=== PATIENT | female | born 1940 | race Caucasian/White ===

== ENCOUNTER 2021-08-12 20:30 | Emergency (ER) | payer MEDICARE ==
[2021-08-12 22:39] VITALS: BP 122/57; PULSE 79; RESP 18; TEMP 98.8
--- NOTE | 2021-08-12 23:25 | XR ---
EXAMINATION TYPE: XR Hip LT and AP Pelvis DATE OF EXAM: 08/12/2021 COMPARISON: NONE HISTORY: Left hip pain. Fall. TECHNIQUE: 3 views FINDINGS: Pelvic ring is intact. Proximal left femur and hip joint appear intact. Sacroiliac joints a re intact. IMPRESSION: Negative left hip exam.
--- NOTE | 2021-08-12 23:28 | XR ---
EXAMINATION TYPE: XR knee complete LT DATE OF EXAM: 08/12/2021 COMPARISON: NONE HISTORY: Pain TECHNIQUE: 3 views FINDINGS: There is knee joint effusion. There is evidence for a nondisplaced fracture of the lateral tibial plateau. The distal femur is intact. IMPRESSION: There is evidence for nondisplaced vertical fracture through the lateral tibial plateau. Knee joint effusion.
[2021-08-13] MEDS ORDERED: traMADol 50 MG TAB PO STA (00:14)
[2021-08-13] MEDS ORDERED: IBUPROFEN 600 MG TAB PO STA (00:14)
[2021-08-13] MEDS ORDERED: IBUPROFEN 600 MG STARTER PACK 4 TAB BTL PO STA (00:14)
[2021-08-13] MEDS ORDERED: traMADol 50 MG STARTER PACK 3 TAB BTL PO STA (00:14)
--- NOTE | 2021-08-13 00:14 | ED ---
Fall HPI - General Chief Complaint: Fall Stated Complaint: Fall, Left Knee Injury Time Seen by Provider: 08/12/21 23:37 Source: patient, RN notes reviewed, old records reviewed Mode of arrival: wheelchair Limitations: no limitations - History of Present Illness Initial Comments: This is a 80-year-old female ER today. Patient presents today for evaluation regards to slip and fall with severe knee pain left flank pain. Patient follows mechanical in nature trip and fall. She fell off a ladder. Follows not significantly high. Patient has no other pain aside from of late did not hit her head, no loss of consciousness. This is a step ladder inside MD Complaint: fall -: minutes(s) Fall From: from height (distance) (Stepladder) When Fall Occurred: 1 hour [employer] Fall Witnessed: yes, by family Place Fall Occurred: home Loss of Consciousness: none Prolonged Down Time?: no Symptoms Prior to Fall: none Location - Extremities: Left: Knee Severity: severe Severity scale (1-10): 8 Quality: sharp Context: tripped/slipped Associated Symptoms: denies - Related Data Allergies Allergy/AdvReac Type Severity Reaction Status Date / Time No Known Allergies Allergy Verified 08/12/21 22:38 Review of Systems ROS Statement: Those systems with pertinent positive or pertinent negative responses have been documented in the HPI. ROS Other: All systems not noted in ROS Statement are negative. Past Medical History Past Medical History: Osteoarthritis (OA) History of Any Multi-Drug Resistant Organisms: None Reported Past Surgical History: No Surgical Hx Reported Past Psychological History: No Psychological Hx Reported Smoking Status: Never smoker Past Alcohol Use History: None Reported Past Drug Use History: None Reported General Exam Limitations: no limitations Course Vital Signs 08/12/21 22:36 Temperature 98.8 F Pulse Rate 79 Respiratory 18 Rate Blood Pressure 122/57 O2 Sat by Pulse 100 Oximetry - Reevaluation(s) Reevaluation #1: 08/13/21 Medical records reviewed Reevaluation #2: 08/13/21 Patient has pain control Reevaluation #3: 08/13/21 Patient is informed results and questions are answered - Consultations Consultation #1: Spoke with orthopedics who can see the patient on outpatient basis Procedures - Orthopedic Splinting/Casting Injury #1 Side: left Lower Extremity Injury Location: knee Lower Extremity Immobilizer: posterior splint, knee immobilizer Medical Decision Making - Medical Decision Making 80 male to the emergency department for evaluation patient comes in for evaluation regards to fall fall of left knee pain. Patient does have tibial fracture will follow-up with orthopedics on outpatient basis - Radiology Data Radiology results: report reviewed (X-ray left knee positive or tibial plateau fracture x-ray and pelvis negative), image reviewed Disposition Clinical Impression: Fall, Fracture of left tibial plateau Disposition: HOME SELF-CARE Condition: Fair Instructions (If sedation given, give patient instructions): Leg Fracture (ED), Fall Prevention for Older Adults (ED) Is patient prescribed a controlled substance at d/c from ED?: No Referrals: Shannon Hernandez [Primary Care Provider] - 1-2 days Lai Montoya MD [Medical Doctor] - 1-2 days Time of Disposition: 01:10
== END 2021-08-13 01:35 | disposition home or self-care (01) ==
LOC: EC 20:30
DX: S82.202A Unspecified fracture of shaft of left tibia, initial encounter for closed fracture (principal); W11.XXXA Fall on and from ladder, initial encounter
CPT/HCPCS: 29505; 73502; 99284

== ENCOUNTER → 2021-08-20 | Outpatient (CLI) | payer MEDICARE ==
--- NOTE | 2021-08-20 13:08 | CT ---
EXAMINATION TYPE: CT knee LT wo con DATE OF EXAM: 08/20/2021 COMPARISON: None HISTORY: Fx proximal left tibia CT DLP: 495.2 mGycm Automated exposure control for dose reduction was used. Unenhanced CT of the left knee was performed with bone and soft tissue window settings submitted. 3-D reconstruction was also obtained at a [employer] workstation. FINDINGS: There is a virtually nondisplaced vertically oriented fracture involving the lateral tibial plateau p osteriorly. Small displaced fracture component is noted to measure 2 mm. No additional fracture seen. There is evidence of joint effusion within the suprasellar bursa. No evidence for dislocation. Mild soft tissue edema noted. Mild narrowing medial tibiofemoral joint space and patellofemoral joint spac e. IMPRESSION: VIRTUALLY NONDISPLACED VERTICALLY ORIENTED FRACTURE LATERAL TIBIAL PLATEAU POSTERIORLY.
== END | disposition home or self-care (01) ==
LOC: RADCTMAIN 12:15
PROVIDERS: ATTEND Orthopaedic Surgery
DX: S82.142A Displaced bicondylar fracture of left tibia, initial encounter for closed fracture (principal)